=== PATIENT | female | born 2000 | race American Indian/Alaskan Native ===

== ENCOUNTER 2024-02-24 08:00 | Outpatient (CLI) | payer MEDICAID, OTHER ==
[2024-02-24 17:29] LABS: BILIRUBIN,URINE NEGATIVE (NEGATIVE); GLUCOSE, URINE (UA) NEGATIVE (NEGATIVE); KETONES,URINE (UA) NEGATIVE (NEGATIVE); LEUKOCYTE ESTERASE, URINE NEGATIVE (NEGATIVE); NITRITE,URINE NEGATIVE (NEGATIVE); OCCULT BLOOD,URINE NEGATIVE (NEGATIVE); PROTEIN,URINE NEGATIVE (NEGATIVE); UROBILINOGEN,URINE 0.2 (NORMAL) E.U./dL (NORMAL)
[2024-02-24 17:49] LABS: CLARITY,URINE CLEAR (CLEAR)
[2024-02-24 18:00] LABS: BACTERIA,URINE Rare /HPF (None Seen); RBC,URINE 0-5 /HPF (0-5); SQUAMOUS EPITHELIAL CELL,UR RARE Squamous (<= Few); WBC,URINE 0-3 /HPF (0-5)
== END 2024-02-24 23:59 | disposition home or self-care (01) ==
LOC: LAB.WC 08:00
PROVIDERS: ATTEND Obstetrics & Gynecology
DX: Z34.90 Encounter for supervision of normal pregnancy, unspecified, unspecified trimester (principal)
CPT/HCPCS: 81001; 87086

== ENCOUNTER 2024-08-06 00:38 | Inpatient (IN) ==
[2024-08-06] MEDS ORDERED: LABETALOL 20 MG/4 ML SYRINGE IVP PRN ×5 (01:00→07:01)
[2024-08-06] MEDS ORDERED: miSOPROStoL 200 MCG TABLET BC PRN (01:00)
[2024-08-06] MEDS ORDERED: METHYLERGONOVINE 0.2 MG/ML VIAL IM PRN (01:00)
[2024-08-06] MEDS ORDERED: OXYTOCIN 10 UNIT/ML VIAL IM PRN (01:00)
[2024-08-06] MEDS ORDERED: hydrALAZINE INJ 20 MG/ML VIAL IVP PRN ×3 (01:00→07:01)
[2024-08-06] MEDS ORDERED: TRANEXAMIC ACID IN NACL 1,000 MG/100 ML BAG IV PRN (01:00)
[2024-08-06] MEDS ORDERED: SODIUM CHLORIDE FLUSH 0.9% 10 ML SYRINGE IVP PRN (01:00)
[2024-08-06] MEDS ORDERED: miSOPROStoL 200 MCG TABLET PR PRN (01:00)
[2024-08-06] MEDS ORDERED: ACETAMINOPHEN 500 MG TABLET PO PRN (01:00)
[2024-08-06] MEDS ORDERED: lidocaine 1% 20 ML MDV ID PRN (01:00)
[2024-08-06] MEDS ORDERED: TERBUTALINE 1 MG/ML VIAL SUBQ PRN (01:00)
[2024-08-06] MEDS ORDERED: fentaNYL 100 MCG/2 ML VIAL IVP PRN (01:00)
[2024-08-06] MEDS ORDERED: NIFEdipine 10 MG CAPSULE PO PRN ×2 (01:00→07:01)
[2024-08-06] MEDS: LACTATED RINGERS 1,000 ML IV PRN (01:32)
--- NOTE | 2024-08-06 01:53 | HISTORY & PHYSICAL EXAMINATION ---
Admit History Visit Reason Visit Reason: Membranes rupture Smoking Status: Never smoker Other Maternal History Other Maternal History: HPI: Patti is a 24 yo at 38w6 who is admitted in early labor with SROM. Patti was seen earlier this evening at [facility] with SROM, 3-4 cm, left AMA. Just wanted to delivery hear. Reports SROM at 11pm, small clear/pink fluid, reprots she has continued to leak. Reports back pain with contractions. No MARCUS, vision changes, upper abdominal pain. Undecided about epidural. Specific Issues/Plans LMP: 11/27/23 VALERIE by LMP: 09/02/2024 US: 03/16/24 @ 18+3 NOT c/w LMP Final VALERIE: 08/14/2024 by US to [place]. first baby for both. both are from [facility]. Here 5 years. just moved to [place] from [place]. +Trich - repeat swab around 39wk BMI 35. recommend ld ASA, ordered. 06/03 patient says she is taking ASA and PNV. very poor dentition. Leyla called to help them find dentist. Pre- Weight: 201.2 BMI: 35.77 Blood type:B+ Antibody Screen: Negative CBC:H/H 13.3/39.9 plt 274 RUB: Immune VZV: Immune HBsAg: Neg HepC:NR RPR:NR HIV: NR Flu: declined Covid: declined PAP: deferred until 6wk pp GC/CT: +Trich HSV: denies in self and partner Genetic testing: ordered but not completed Early Glucola: A1c 5.1 FAS: Placenta: anterior w/o previa Cord: 3VC ALICE: 15.4cm EFW: 435g 69th%ile 50gm OGCT: 112 3HR GTT: TDAP: 06/03 Breast Pump: 06/03 Leyla from [facility] talked to pt 06/03 Trich test of cure: 06/03- positive-maybe too early trich test of cure: 06/16- positive- treated again- couldn't metal pickling equipment operator meds RSV: 07/14/24 RPR- NR CBC: PLT/HCT/HGB- 13.1/39.8/281 GBS: negative PP BC: PE: Vitals signs reviewed in [facility], first BP mildly elevated. Gen: NAD Resp: non labored respirations Abd: gravid, non tender. EFW 3600g Ext: no LE edema, no evidence of DVT SVE: 4/70/-2, grossly ruptured by RN exam at approximately 1AM. Bedside US: cephalic presentation monitoring: FHTs: 130s bpm baseline, + accel, mod variability, + variable/late decelerations on presentation, these have improved with fluid bolus/repositioning [place]: not tracing wel FHTs: Cat 2 Labs: pending A/P: Patti is a 24 yo at 38w6: - Early labor - SROM - GBS neg - H/o trichomonas in - BMI 40 - Admitted for management of SROM in early labor. Discussed repeat SVE in 4 hours and possible augmentation with pitocin if SVE unchanged or having infrequent contractions. - Pain management per patient request. OK for epidural when/if she decides for one. - Requested that 2nd IV be placed given BMI - Vag swab repeated for trichomonas, will treat if needed - FHTs currently reassuring after fluid bolus/repositioning, will monitor closely. Ryann Young MD Meds/Allgy Home Medications Ambulatory Orders Medication Instructions Recorded Confirmed famotidine 20 mg tablet (Pepcid) 20 mg PO BID #60 tabs 06/16/24 08/04/24 aspirin 81 mg tablet,delayed 81 mg PO QDAY prevent preeclampsia 06/30/24 08/04/24 release (Enteric Coated Aspirin) #90 tabs cholecalciferol (vitamin D3) 50 50 mcg PO QDAY #90 caps 07/14/24 08/04/24 mcg (2,000 unit) capsule vitamins no.154-ferrous 1 tab PO .daily #90 tabs 07/14/24 08/04/24 fumarate 27 mg-folic acid 1 mg tablet Allergies Allergies Allergy/AdvReac Type Severity Reaction Status Date / Time No Known Drug Allergies Allergy Verified 03/29/24 11:58 PFSH Active Problems All Active Problems (Updated 07/28/24 @ 14:25 by Ryann Young MD) Obesity (BMI 35.0-39.9 without comorbidity) (Acute) Obesity affecting (Acute) Supervision of normal in second trimester (Acute) Family History Family History (Updated 03/29/24 @ 13:18 by Ana Ambrosio LPN) Mother Diabetes Father High blood pressure Social History Social History (Updated 03/29/24 @ 13:35 by Elizabeth Lennon MD) Smoking Status: Never smoker If you are a former smoker, when did you quit? (Date/Year): FORMER VAPE Second hand tobacco smoke exposure: No Do you dip or chew tobacco?: No Do you vape?: No Living arrangement: At home Marital Status: Living Condition: With family Living Situation Details: Lives with Ronny, her sister in law and brother in law. Physical Activity: None Level: Independent ETOH Use: None Substance Use: denies use Are you sexually active?: Yes Occupation: caregiver. Plan for Labor Plan For Labor I expect patient to be DC'd or transferred within 96 hours.: Yes
[2024-08-06] MEDS: SODIUM CHLORIDE FLUSH 0.9% 10 ML SYRINGE IVP SCH (02:00)
[2024-08-06 02:16] LABS: BASOPHILS % (AUTO) 0.2 %; EOSINOPHILS # (AUTO) 0.2 10^3/uL (0.0-0.7); EOSINOPHILS % (AUTO) 1.5 %; HCT - HEMATOCRIT 41.1 % (37.0-47.0); HGB - HEMOGLOBIN 13.6 g/dL (12.0-16.0); LYMPHOCYTES # (AUTO) 2.3 10^3/uL (1.5-3.5); LYMPHOCYTES % (AUTO) 18.1 %; MEAN CORPUSCULAR HEMOGLOBIN 29.8 pg (27.0-31.0); MEAN CORPUSCULAR HGB CONC 33.1 g/dL (32.0-36.0); MEAN CORPUSCULAR VOLUME 90.1 fL (81.0-99.0); MEAN PLATELET VOLUME 11.7 fL (7.9-10.8); MONOCYTES # (AUTO) 0.6 10^3/uL (0.0-1.0); MONOCYTES % (AUTO) 4.7 %; NEUTROPHILS # (AUTO) 9.5 10^3/uL (1.5-6.6); PLT - PLATELET COUNT 293 10^3/uL (130-450); RED BLOOD COUNT 4.56 10^6/uL (4.20-5.40); RED CELL DISTRIBUTION WIDTH 11.9 % (12.0-15.0); WHITE BLOOD COUNT 12.7 x10^3/uL (4.8-10.8)
[2024-08-06 02:26] LABS: ALBUMIN 3.2 g/dL (3.2-5.5); ALBUMIN/GLOBULIN RATIO 0.8 (1.0-2.2); BILIRUBIN,TOTAL 0.3 mg/dL (0.2-1.0); CREATININE 0.6 mg/dL (0.6-1.3); POTASSIUM 3.7 mmol/L (3.5-4.5); TOTAL PROTEIN 7.3 g/dL (6.4-8.9)
[2024-08-06] MEDS ORDERED: FAMOTIDINE 20 MG TABLET PO PRN (03:07)
[2024-08-06 04:42] LABS: CHLAMYDIA TRACHOMATIS DNA NEGATIVE (NEGATIVE); NEISSERIA GONORRHOEAE DNA NEGATIVE (NEGATIVE); TRICHOMONAS VAGINALIS DNA NEGATIVE (NEGATIVE)
[2024-08-06] MEDS ORDERED: LIDOCAINE 2%-EPI 1:100000 20 ML MDV ONE (04:45)
[2024-08-06] MEDS ORDERED: ROPIVACAINE 0.2% 200 MG/100 ML BAG EP ONE (04:45)
[2024-08-06] MEDS ORDERED: OXYTOCIN/SODIUM CHLORIDE 500 ML IV PRN ×2 (05:15→07:01)
[2024-08-06] MEDS ORDERED: PHENYLEPHRINE HCL 0.5 MG/5 ML AMPULE ONE (05:38)
[2024-08-06] MEDS ORDERED: ePHEDrine 50 MG/ML VIAL IVP ONE (05:38)
[2024-08-06] MEDS ORDERED: diphenhydrAMINE INJ 50 MG/ML VIAL IVP PRN (06:18)
[2024-08-06] MEDS ORDERED: ONDANSETRON 4 MG/2 ML VIAL IVP PRN (06:18)
[2024-08-06] MEDS ORDERED: ePHEDrine 50 MG/ML VIAL IVP PRN (06:18)
[2024-08-06] MEDS ORDERED: NALOXONE 0.4 MG/ML VIAL IVP PRN ×2 (06:18→07:01)
[2024-08-06] MEDS ORDERED: ROPIVACAINE 0.2% 200 MG/100 ML BAG EP PRN (06:18)
[2024-08-06] MEDS ORDERED: METOCLOPRAMIDE 10 MG/2 ML VIAL IVP PRN (06:18)
[2024-08-06] MEDS ORDERED: NALBUPHINE 10 MG/ML AMP IVP PRN (06:18)
--- NOTE | 2024-08-06 06:21 | ANESTHESIA PROCEDURE NOTE ---
Pre-Anesthesia VS, & Labs Diagnosis Surgical Diagnosis:: labor pain Procedure Procedure: placement of labor epidural Vitals Vital Signs: Temp Pulse Resp BP 36.9 C 78 18 134/98 H 08/06/24 01:08 08/06/24 01:08 08/06/24 01:08 08/06/24 01:08 Height (in): 5 ft 3 in Weight (kg): 135 kg Body Mass Index: 52.7 BMI Classification: Morbidly Obese NPO Last Fluid Intake: currently taking po, be o Is Patient ?: Yes Estimated Due Date:: 08/06/24 Lab Results Current Lab Results: Laboratory Tests 08/06/24 01:32: WBC 12.7 H, RBC 4.56, Hgb 13.6, Hct 41.1, MCV 90.1, MCH 29.8, MCHC 33.1, RDW 11.9 L, Plt Count 293, MPV 11.7 H, Neut # (Auto) 9.5 H, Lymph # (Auto) 2.3, Ceiba # (Auto) 0.6, Eos # (Auto) 0.2, Baso # (Auto) 0.0, Absolute Nucleated RBC 0.00, Nucleated RBC % 0.0, Sodium 132 L, Potassium 3.7, Chloride 100 L, Carbon Dioxide 24, Anion Gap 8.0, BUN 4 L, Creatinine 0.6, Estimated GFR (MDRD) 122, Glucose 112 H, Calcium 9.0, Total Bilirubin 0.3, AST 13, ALT 9 L, A lkaline Phosphatase 202 H, Total Protein 7.3, Albumin 3.2, Globulin 4.1, A lbumin/Globulin Ratio 0.8 L, Blood Type B POSITIVE, Antibody Screen NEGATIVE Lab results reviewed: Yes 08/06/24 01:32 08/06/24 01:32 Meds/Allgy Home Medications Ambulatory Orders Medication Instructions Recorded Confirmed famotidine 20 mg tablet (Pepcid) 20 mg PO BID #60 tabs 06/16/24 08/04/24 aspirin 81 mg tablet,delayed 81 mg PO QDAY prevent preeclampsia 06/30/24 08/04/24 release (Enteric Coated Aspirin) #90 tabs cholecalciferol (vitamin D3) 50 50 mcg PO QDAY #90 caps 07/14/24 08/04/24 mcg (2,000 unit) capsule vitamins no.154-ferrous 1 tab PO .daily #90 tabs 07/14/24 08/04/24 fumarate 27 mg-folic acid 1 mg tablet Allergies Allergies Allergy/AdvReac Type Severity Reaction Status Date / Time No Known Drug Allergies Allergy Verified 03/29/24 11:58 PFSH Active Problems All Active Problems Obesity affecting (Acute) Obesity (BMI 35.0-39.9 without comorbidity) (Acute) Supervision of normal in second trimester (Acute) Family History Family History Mother Diabetes Father High blood pressure Social History Social History Smoking Status: Never smoker If you are a former smoker, when did you quit? (Date/Year): FORMER VAPE Second hand tobacco smoke exposure: No Do you dip or chew tobacco?: No Do you vape?: No Living arrangement: At home Marital Status: Living Condition: With family Living Situation Details: Lives with Ronny, her sister in law and brother in law. Physical Activity: None Level: Independent ETOH Use: None Substance Use: denies use Are you sexually active?: Yes Occupation: caregiver. POLST Patient has POLST: No POLST Status: Full Code Anesthesia Exam (Expanded) Exam General: Moderate distress Dental: WNL and Poor dentition Mouth Openin Fingerbreadth Neck Mobility: Reduced Mallampati classification: III Thyromental Distance: 4-6 cm Plan Plan Anesthesia Type: Epidural Consent for Procedure(s) Verified and Reviewed: Yes Code Status: Attempt Resuscitation ASA Classification ASA classification: 2-Mild systemic disease Is this case an emergency?: No
[2024-08-06] MEDS: OXYTOCIN/SODIUM CHLORIDE 500 ML IV PRN (06:34)
--- NOTE | 2024-08-06 07:00 | DELIVERY NOTE ---
Delivery Note Labor Labor: positive Spontaneous Infant Delivery Method Infant Delivery Method: positive Spontaneous vaginal delivery Presentation Presentation: positive Vertex and MIGUELITO - left occiput anterior Nuchal Cord Nuchal Cord: positive None Amniotic Fluid Description Amniotic Fluid Description: positive Clear Episiotomy Type Episiotomy Type: positive None Laceration Laceration: positive 2nd degree Suture Suture Size: positive 3-0 (rapide) Delivery Outcome Delivery Outcome: positive Livebirth [place]: positive Placed in direct skin contact with mother, Stimulated and Warmed sex: positive Male Cord Cord: positive 3 vessels Placenta Placenta: positive Intact Estimated Blood Loss Estimated Blood Loss (in cc): 300 Delivery Comments (Free Text/Narrative) Delivery Comments (Free Text/Narrative): I was called to the bedside for patient complete and ready to start pushing. She pushed with excellent effort. The anterior shoulder delivered easily with maternal effort and gentle downward pressure followed by the posterior shoulder and the remainder of the body. The was placed on the mother's abdomen. After 60 sec the cord was clamped times two and cut. Pitocin was started. The placenta was delivered intact. Excellent uterine tone noted. Brisk bleeding from 2nd degree perineal laceration encountered, which was repaired with 3-0 Rapide. Perineal hemostasis noted at completion of procedure.
[2024-08-06] MEDS ORDERED: SIMETHICONE CHEW 80 MG TABLET PO PRN (07:01)
[2024-08-06] MEDS ORDERED: oxyCODONE 5 MG TABLET PO PRN (07:01)
[2024-08-06] MEDS ORDERED: LABETALOL 5 MG/1 ML 20 ML MDV IVP PRN (07:01)
[2024-08-06] MEDS: LACTATED RINGERS 500 ML IV ONE (07:39)
--- NOTE | 2024-08-06 09:29 | PHARMACY PROGRESS NOTE ---
Best Possible Medication History Admit Date and Time: 08/06/24 [id number] Home Medications Medication Instructions Recorded Confirmed Type famotidine 20 mg tablet (Pepcid) 20 mg PO BID #60 tabs 06/16/24 08/06/24 Rx aspirin 81 mg tablet,delayed 81 mg PO QDAY prevent preeclampsia 06/30/24 08/06/24 Rx release (Enteric Coated Aspirin) #90 tabs vitamins no.154-ferrous 1 tab PO .daily #90 tabs 07/14/24 08/06/24 Rx fumarate 27 mg-folic acid 1 mg tablet Processed by: Pharmacy Medications reviewed in ED?: No Medication History completed: Yes Patient Interview: Completed Secondary Source(s): Caregiver and Insurance records [facility] Statement: teletype mechanic interview with pt and review of [facility] Rx records. As the person ultimately responsible for medication therapy, providers are able to order a medication from an existing home medication list in [facility] via the "Reconcile Routine" prior to Confirmation of that medication by technical sales support specialist. Such practice is discouraged except when the physician, in their clinical judgment, deems that a medical need exists for a medication without regard to previous use.
[2024-08-06] MEDS: DOCUSATE SODIUM 100 MG CAPSULE PO SCH (12:31)
[2024-08-06 12:49] VITALS: O2SAT 99
[2024-08-06] MEDS: IBUPROFEN 600 MG TABLET PO PRN (20:29)
[2024-08-07] MEDS: ACETAMINOPHEN 500 MG TABLET PO PRN (00:41)
[2024-08-07] MEDS: BENZOCAINE/MENTHOL LOZENGE MM PRN (10:20)
--- NOTE | 2024-08-07 10:45 | PROVIDER PROGRESS NOTE ---
Subjective Prog Note Date Prog Note Date: 08/07/24 Prog Note Time: 10:39 Subjective Subjective: She reports she is feeling well. She is ambulating without difficulty. Pain is well controlled. She is urinating without difficulty. Tolerating regular diet. Feeding baby via bottle. Current Medications Current Medications Current Medications: Current Medications Generic Name Dose Route Start Last Admin Trade Name Freq PRN Reason Stop Dose Admin Acetaminophen 1,000 mg 08/06/24 01:00 Acetaminophen 500 Mg Tablet PO Q8H PRN Mild Pain or Fever>38C(100.4F) Acetaminophen 1,000 mg 08/06/24 07:01 08/07/24 00:41 Acetaminophen 500 Mg Tablet PO 1,000 mg Q8HR PRN Administration Mild Pain or Fever>38C(100.4F) Diphenhydramine HCl 12.5 - 25 mg 08/06/24 06:18 Diphenhydramine Inj 50 Mg/Ml Vial IVP Q6HR PRN ITCHING Docusate Sodium 100 mg 08/06/24 09:00 08/07/24 08:15 Docusate Sodium 100 Mg Capsule PO 100 mg BID WILMER Administration Ephedrine Sulfate 5 mg 08/06/24 06:18 Ephedrine 50 Mg/Ml Vial IVP Q5M PRN For SBP<100;give until SBP>100 Famotidine 20 mg 08/06/24 03:07 Famotidine 20 Mg Tablet PO BID PRN Heartburn Fentanyl 50 mcg 08/06/24 01:00 Fentanyl 100 Mcg/2 Ml Vial IVP Q1H PRN Severe Pain (score 7-10) Hydralazine HCl 5 - 10 mg 08/06/24 01:00 Hydralazine Inj 20 Mg/Ml Vial IVP Q20M PRN SBP> or= 160 OR DBP> or= 110 Protocol Hydralazine HCl 10 mg 08/06/24 07:01 Hydralazine Inj 20 Mg/Ml Vial IVP .ONCE PRN SBP> or= 160 OR DBP> or= 110 Protocol Hydralazine HCl 5 - 10 mg 08/06/24 07:01 Hydralazine Inj 20 Mg/Ml Vial IVP Q20M PRN SBP >=160 and/or DBP >=110 Protocol Lactated Ringer's 500 mls @ 999 mls/hr 08/06/24 01:00 08/06/24 02:38 Lr IV 999 mls/hr PRN PRN Administration Abdominal Pain Oxytocin/Sodium Chloride 500 mls @ 999 mls/hr 08/06/24 01:00 08/06/24 07:05 Pitocin/Sodium Chloride IV Infused PRN PRN Titration POST- HEMORR PREVENTION Protocol 999 MILLIUNIT/MIN Tranexamic Acid 1,000 mg in 100 mls @ 600 mls/hr 08/06/24 01:00 Tranexamic 1,000 Mg/100ml-Nacl IV Q30M PRN EBL >1200mL and within 3hr Oxytocin/Sodium Chloride 500 mls @ 1 mls/hr 08/06/24 05:15 Pitocin/Sodium Chloride IV TITR PRN irregular contractions Protocol 1 MILLIUNIT/MIN Ropivacaine 200 mg in 100 mls @ 0 mls/hr 08/06/24 06:18 Naropin 0.2% EP PRN PRN PAIN Protocol Per Protocol Oxytocin/Sodium Chloride 500 mls @ 999 mls/hr 08/06/24 07:01 Pitocin/Sodium Chloride IV PRN PRN POST- HEMORR PREVENTION Protocol 999 MILLIUNIT/MIN Ibuprofen 600 mg 08/06/24 07:01 08/06/24 20:29 Ibuprofen 600 Mg Tablet PO 600 mg Q6HR PRN Administration Moderate Pain (Level 4-6) Labetalol HCl 20 - 80 mg 08/06/24 01:00 Labetalol 20 Mg/4 Ml Syringe IVP Q10M PRN SBP> or= 160 OR DBP> or= 110 Protocol Labetalol HCl 20 mg 08/06/24 01:00 Labetalol 20 Mg/4 Ml Syringe IVP .ONCE PRN SBP> or= 160 OR DBP> or= 110 Protocol Labetalol HCl 20 - 40 mg 08/06/24 01:00 Labetalol 20 Mg/4 Ml Syringe IVP Q10M PRN SBP> or= 160 OR DBP> or= 110 Protocol Labetalol HCl 20 - 80 mg 08/06/24 07:01 Labetalol 5 Mg/1 Ml 20 Ml Mdv IVP Q10M PRN SBP> or= 160 OR DBP> or= 110 Protocol Labetalol HCl 20 - 40 mg 08/06/24 07:01 Labetalol 20 Mg/4 Ml Syringe IVP Q10M PRN SBP> or= 160 OR DBP> or= 110 Protocol Labetalol HCl 20 mg 08/06/24 07:01 Labetalol 20 Mg/4 Ml Syringe IVP .ONCE PRN SBP >=160 and/or DBP >=110 Protocol Lidocaine HCl 20 ml 08/06/24 01:00 Lidocaine 1% 20 Ml Mdv ID 08/09/24 01:00 .ONCE PRN PERINEAL REPAIR Methylergonovine Maleate 0.2 mg 08/06/24 01:00 Methylergonovine 0.2 Mg/Ml Vial IM .ONCE PRN Hemorrhage Metoclopramide HCl 10 mg 08/06/24 06:18 Metoclopramide 10 Mg/2 Ml Vial IVP Q6HR PRN Nausea / Vomiting Misoprostol 600 mcg 08/06/24 01:00 Misoprostol 200 Mcg Tablet BC .ONCE PRN Hemorrhage Misoprostol 800 mcg 08/06/24 01:00 Misoprostol 200 Mcg Tablet W[place] .ONCE PRN Hemorrhage Nalbuphine HCl 2.5 - 5 mg 08/06/24 06:18 Nalbuphine 10 Mg/Ml Amp IVP Q4H PRN ITCHING Naloxone HCl 0.1 mg 08/06/24 06:18 Naloxone 0.4 Mg/Ml Vial IVP Q2M PRN RR<8 Naloxone HCl 0.4 mg 08/06/24 07:01 Naloxone 0.4 Mg/Ml Vial IVP .ONCE PRN Opioid Overdose Nifedipine 10 - 20 mg 08/06/24 01:00 Nifedipine 10 Mg Capsule PO Q20M PRN SBP> or= 160 OR DBP> or= 110 Protocol Nifedipine 10 - 20 mg 08/06/24 07:01 Nifedipine 10 Mg Capsule PO Q20M PRN SBP >=160 and/or DBP >=110 Protocol Ondansetron HCl 4 mg 08/06/24 06:18 Ondansetron 4 Mg/2 Ml Vial IVP Q6HR PRN Nausea / Vomiting Oxycodone HCl 5 mg 08/06/24 07:01 Oxycodone 5 Mg Tablet PO Q4HR PRN Severe Pain 6-10 Oxytocin 10 unit 08/06/24 01:00 Oxytocin 10 Unit/Ml Vial IM .ONCE PRN Step One if no IV access. Simethicone 80 mg 08/06/24 07:01 Simethicone Chew 80 Mg Tablet PO TID PRN Gas Sodium Chloride 10 ml 08/06/24 01:00 Sodium Chloride Flush 0.9% 10 Ml Syringe IVP PRN PRN NEEDED PER PROVIDER ORDERS Sodium Chloride 10 ml 08/06/24 01:00 08/06/24 02:00 Sodium Chloride Flush 0.9% 10 Ml Syringe IVP 10 ml Q8H WILMER Administration Terbutaline Sulfate 0.25 mg 08/06/24 01:00 Terbutaline 1 Mg/Ml Vial SUBQ .ONCE PRN Tachystole Throat Lozenges 1 lozenge 08/07/24 10:08 08/07/24 10:20 Benzocaine/Menthol Lozenge MM 1 lozenge Q2HR PRN Administration Mouth Sore Pain Objective Vital Signs/Intake & Output Vital Signs: Vital Signs x48h Temp Pulse Pulse Resp BP Pulse Ox 08/07/24 08:36 97.7 F 92 16 111/62 99 08/07/24 03:00 98.1 F 91 16 97/66 Intake & Output: Intake & Output 08/04/24 08/05/24 08/06/24 08/08/24 23:59 23:59 23:59 00:59 Intake Total 1900 / 1900 Output Total 2650 / 2650 Balance -750 / -750 Weight (kg) 297 lb 9.985 oz Objective Comments/Other: Gen: NAD Chest: non labored respirations Abd: non tender, fundus firm. Ext: no LE edema, no evidence of DVT Lab Results 08/06/24 01:32 08/06/24 01:32 Assessment/Plan Problem List (1) care and examination of lactating mother: Impression: - Continue routine care. Anticipate discharge home tomorrow. - Patti has been in contact with community health worker, Lacy, during . I asked Patti if we could let Lacy know that she had delivered, and she did consent. I will reach out to Lacy today. Patti reports that she does have things that she needs for baby at home. Will also place consult for SW to see her before discharge.
--- NOTE | 2024-08-08 11:19 | Discharge Summary ---
Discharge Summary Admit Date: 08/06/24 Discharge Date: 08/08/24 Discharging Provider: Theodore Lynn Code Status: Attempt Resuscitation DIAGNOSES Admission Diagnoses: 38 weeks gestation Spontaneous rupture of membranes Term labor Discharge Diagnoses with Status of Each Condition: Status post Stone vaginal delivery Delivery of live ingram Betel nut use. HPI History of Present Illness: Subjective Patient reports she is doing well. Lochia appropriate. Denies heavy bleeding. Ambulating. Pelvic and abdominal pain well-controlled. Tolerating oral intake. Diet: Regular. Voiding without difficulty. Passing flatus. Denies BM. Patient is bonding with baby in room Bottle feeding at this time. Denies feeling lightheaded, dizzy or excessively fatigued. Control: Undecided. Will talk to Dr. Gonzalez about this . Objective General: Alert, oriented, no apparent distress. Cardiovascular: Regular rate. Regular rhythm. Lungs: No increased work of breathing. Abdomen: Uterus firm. Below umbilicus. No guarding or rebound. Extremities: No pain on palpation. No cords palpated. Distal pulses intact. HOSPITAL COURSE Hospital Course: Patient was admitted at 38 weeks gestation with spontaneous rupture of membranes the night before. She was seen at [facility] but left AMA as she wants deliver here. Delivery was uncomplicated. course was unremarkable, but was counseled on data of butyl use and breast-feeding. Patient scheduled for follow-up with Dr. Lennon. ALLERGIES Allergies Allergy/AdvReac Type Severity Reaction Status Date / Time No Known Drug Allergies Allergy Verified 08/06/24 15:22 MEDICATIONS Ambulatory Orders Medication Instructions Recorded Confirmed famotidine 20 mg tablet (Pepcid) 20 mg PO BID #60 tabs 06/16/24 08/06/24 vitamins no.154-ferrous 1 tab PO .daily #90 tabs 07/14/24 08/06/24 fumarate 27 mg-folic acid 1 mg tablet LABS 08/06/24 01:32 08/06/24 01:32 FOLLOW UP Follow Up: With [facility] care in 1 week TIME SPENT Time Spent in Discharge (Minutes): 30 Discharge Plan Discharge Patient Disposition: 01 Home, Self Care Condition: Stable Medically Cleared Date:: 08/08/24 Prescriptions: Continued famotidine [Pepcid] 20 mg tablet 20 mg PO BID Qty: 60 2RF PNV no.154-iron fumarate-folic 27 mg iron- 1 mg tablet 1 tab PO .daily Qty: 90 4RF Discontinued aspirin [Enteric Coated Aspirin] 81 mg tablet,delayed release (DR/EC) 81 mg PO QDAY Qty: 90 4RF Activity Restrictions: Additional Comments Print Language: Bengali Patient Instructions: Vaginal After, Depression Follow-up Care: Elizabeth Lennon MD [Provider Admit Priv/Credential] -
[2024-08-08 14:46] VITALS: BP 105/62; TEMP 97.9
--- NOTE | 2024-08-08 14:52 | Labor Flowsheet ---
Labor Flowsheet Datetime Report Generated by CPN: 08/08/2024 14:52 Datetime: 08/08/2024 04:34 VITAL SIGNS NBP Sys/Dayanara/Mean (mmHg): 112 : 70 : 79 Pulse: 73 Datetime: 08/06/2024 09:00 Stage of : Datetime: 08/06/2024 06:30 UTERINE ACTIVITY Monitor Mode: Palpation Frequency (min): 2-3 Quality: Strong Pattern: Normal: <= 5 Contractions in 10 Minutes Resting Tone (Palpate): Relaxed ASSESSMENT A Monitor Mode: External US Variability: Moderate 6-25 bpm Comments: UTD baseline Oxygen Method: Room Air Datetime: 08/06/2024 06:18 STAGE 2 Pushing Position: Pushing with Contractions; Pushing Lithotomy Datetime: 08/06/2024 06:12 Monitor Interventions for UA: Sage Adjusted Communication Comments: Dr. Hector at bedside Datetime: 08/06/2024 06:00 FHR Baseline Rate : 125 Decelerations: Late; Variable Category: Category II Datetime: 08/06/2024 05:59 SpO2 (%): 100 Datetime: 08/06/2024 05:50 COMMUNICATION Communication: Call/Page Placed to Provider Notification Reason: Labor Status Datetime: 08/06/2024 05:48 VAGINAL EXAM Dilatation (cm): 10.0 Station: 1 Exam by: Darleen Daily RN Datetime: 08/06/2024 05:39 Actions for Decelerations: Side to Side Datetime: 08/06/2024 05:30 Duration (sec): 50-60 Datetime: 08/06/2024 05:27 Temperature (C): 36.4 Datetime: 08/06/2024 05:14 Epidural Procedure: Loading Dose Datetime: 08/06/2024 04:47 PROCEDURE TIME OUT Procedure Verify: Correct Patient Identity; Correct Side and Site are Marked; Accurate Procedure Co nsent Form; Agreement on Procedure to be Done; Correct Patient Position; Relevant Images and Results are Properly Labeled and Displayed; Addressed Need to Administer Antibiotics or Fluids for Irrigation ; Safety Precautions Based on Patient History or Medication Use ANESTHESIA Anesthesia Plans: Epidural Epidural Positioning: Sitting Anesthesia Comments: Arun Campos [employer] at bedside Datetime: 08/06/2024 04:33 Monitor Interventions for FHR: Ultrasound Adjusted Datetime: 08/06/2024 04:11 PAIN Pain Presence: Intermittent Pain Type: Contraction Pain Location: Abdomen; Back Pain Relief Measures: Comfort Measures Pain Coping: Breathing Through Contractions; Declines Medication or Epidural; Other Pain Assessment Comments: pt requests nitrous oxide gas for pain management, RN instructed pt and h usband on use, pt verbalized understanding Comfort Measures: Breathing/Relaxation; Family Support Datetime: 08/06/2024 03:58 Effacement (%): 80 Datetime: 08/06/2024 03:49 I/O Interventions: Up to BR Datetime: 08/06/2024 03:30 Accelerations: 15X15 Datetime: 08/06/2024 03:16 Membranes Ruptured Date/Time: 08/05/2024 23:00 Membranes Rupture Method: Spontaneous Amniotic Fluid Color: Clear Amniotic Fluid Odor: Normal Datetime: 08/06/2024 02:30 Contraction Comments: per pt report Datetime: 08/06/2024 01:49 Patient Position/Activity: Standing Datetime: 08/06/2024 01:48 Patient Care Comments: pt states she in uncomfortable in the bed and is requesting to stand Datetime: 08/06/2024 01:32 PATIENT CARE IV/Blood Work: IV Bolus Started; IV Bolus Given ml @ 999; IV Infusing per Order; IV Bag Number @ 1
== END 2024-08-08 14:50 | disposition home or self-care (01) | DRG 807 ==
LOC: WFO 00:38 → FBP 00:41
PROVIDERS: ADMIT Obstetrics & Gynecology; ATTEND Obstetrics & Gynecology
DX: Z37.0 Single live birth; Z3A.38 38 weeks gestation of pregnancy; O70.1 Second degree perineal laceration during delivery; O76 Abnormality in fetal heart rate and rhythm complicating labor and delivery; Z86.19 Personal history of other infectious and parasitic diseases; O99.214 Obesity complicating childbirth